=== PATIENT | male | born 1945 | race Caucasian/White ===

== ENCOUNTER 2022-03-21 07:33 | Inpatient (IN) | payer MEDICARE ==
[2022-03-21 08:26] LABS: #Eosinphils 0.2 10x3/uL (0.0-0.5); #Monocytes 0.6 10x3/uL (0.0-1.1); #Neutrophils 9.5 10x3/uL (1.5-8.4); %Basophils 0.2 % (0.0-2.0); %Eosinophils 1.5 % (0.0-6.0); %Lymphocytes 9.9 % (18.0-47.0); %Monocytes 5.2 % (0.0-10.0); %Neutrophils 82.4 % (40.0-75.0); Hemoglobin 7.2 g/dL (13.5-17.5); Mean Corpuscular Hemoglobin 28.8 pg (27.0-33.0); Mean Platelet Volume 8.9 fl (7.4-10.4); Platelet Count 446 10x3/uL (150-450); RBC Distribution Width 18.4 % (11.5-14.5); White Blood Cell (WBC) Count 11.5 10x3/uL (3.5-10.5)
[2022-03-21 08:42] LABS: ALT (SGPT) 17 U/L (8-55); AST (SGOT) 12 U/L (5-34); Albumin 2.5 g/dL (3.4-4.8); Alkaline Phosphatase 73 U/L (40-110); Anion Gap 14 mmol/L (10-20); BUN (Urea Nitrogen) 33 mg/dL (8.4-25.7); Bilirubin, Total 0.2 mg/dL (0.2-1.2); CK (CPK) 66 U/L (30-200); Calc. Creatinine Clearance 0 mL/min (70-130); Calcium 8.4 mg/dL (7.8-10.44); Carbon Dioxide 18 mmol/L (23-31); Chloride 111 mmol/L (98-107); Estimated GFR 30; Globulin 3.3 g/dL (2.4-3.5); Glucose 76 mg/dL (83-110); Lipase 27 U/L (8-78); Potassium 5.3 mmol/L (3.5-5.1); Protein, Total 5.8 g/dL (5.8-8.1); Sodium 138 mmol/L (136-145)
[2022-03-21] MEDS ORDERED: Dextrose 50% Abboject 50 ML SYRINGE ONE (08:55)
[2022-03-21] MEDS ORDERED: Octreotide Acetate 50 MCG/ML AMP ONE (08:56)
[2022-03-21 09:12] LABS: Bilirubin Neg (Negative); Blood, Urine 25 (Negative); Clarity Slightly Cloudy (Clear); Glucose, Urine (Dipstick) Normal (Negative); Ketone, Urine Negative (Negative); Leukocyte 500 (Negative); Nitrite Negative (Negative); Protein, Urine (Dipstick) 100 mg/dl (Neg-Trace); Specific Gravity, Urine 1.015 (1.002-1.036); Urobilinogen Normal mg/dL (Less than 2)
[2022-03-21 09:25] LABS: CKMB 10.3 ng/mL (0-6.6)
[2022-03-21 09:33] LABS: Squamous Epithelial 0-3 HPF (0-3); WBC/HPF 21-50 HPF (0-3)
[2022-03-21 09:34] LABS: Bacteria/HPF 3+ HPF (None Seen)
[2022-03-21] MEDS ORDERED: Aspirin Chewable 81 MG TAB ONE (10:11)
[2022-03-21] MEDS ORDERED: cefTRIAXone\\ROCEPHIN 2 GM VIAL ONE (10:11)
[2022-03-21] MEDS ORDERED: Acetaminophen 325 MG TAB PO PRN (10:15)
[2022-03-21] MEDS ORDERED: Ondansetron PF 4 MG/2 ML Vial IVP PRN (10:15)
[2022-03-21] MEDS ORDERED: Ondansetron ODT 4 MG TAB PO PRN (10:15)
[2022-03-21] MEDS ORDERED: Dextrose 5% in Water 1,000 ML IV PRN (11:15)
[2022-03-21] MEDS ORDERED: HumaLOG 300 UNITS/3 ML VIAL SC PRN ×2 (11:15)
[2022-03-21] MEDS ORDERED: Dextrose 50% Abboject 50 ML SYRINGE SLOW IVP PRN (11:15)
[2022-03-21 13:03] VITALS: BMI 30.4
[2022-03-21] MEDS ORDERED: Famotidine 20 MG TAB PO SCH (21:00)
[2022-03-21] MEDS ORDERED: Famotidine/PF 20 mg/2ml Vial SLOW IVP SCH (21:00)
[2022-03-22] MEDS: Dextrose 10% in Water 1,000 ML IV SCH (00:36)
[2022-03-22 03:08] LABS: SARS-CoV-2 NAA Rapid Test Not Detected (NotDetected)
[2022-03-22 06:33] LABS: Anion Gap 12 mmol/L (10-20); BUN (Urea Nitrogen) 34 mg/dL (8.4-25.7); Calc. Creatinine Clearance 37 mL/min (70-130); Calcium 7.8 mg/dL (7.8-10.44); Carbon Dioxide 18 mmol/L (23-31); Chloride 114 mmol/L (98-107); Estimated GFR 31; Glucose 90 mg/dL (83-110); Potassium 4.9 mmol/L (3.5-5.1); Sodium 139 mmol/L (136-145)
[2022-03-22 06:42] LABS: #Eosinphils 0.7 10x3/uL (0.0-0.5); #Monocytes 0.8 10x3/uL (0.0-1.1); #Neutrophils 5.8 10x3/uL (1.5-8.4); %Basophils 0.1 % (0.0-2.0); %Eosinophils 7.6 % (0.0-6.0); %Lymphocytes 14.8 % (18.0-47.0); %Monocytes 9.2 % (0.0-10.0); %Neutrophils 67.7 % (40.0-75.0); Hemoglobin 5.9 g/dL (13.5-17.5); Mean Corpuscular Hemoglobin 29.1 pg (27.0-33.0); Mean Corpuscular Volume 88.2 fl (81.2-95.1); Mean Platelet Volume 9.2 fl (7.4-10.4); Platelet Count 388 10x3/uL (150-450); RBC Distribution Width 18.6 % (11.5-14.5); Red Blood Cell (RBC) Count 2.03 10x6/uL (4.32-5.72); White Blood Cell (WBC) Count 8.5 10x3/uL (3.5-10.5)
[2022-03-22 08:14] LABS: PTT 24.1 sec (22.0-33.0); Prothrombin Time 10.9 sec (9.5-12.1)
[2022-03-22 08:17] LABS: Iron 28 ug/dL (65-175); Iron Binding Capacity, Total 96 mcg/dL (261-462)
[2022-03-22 08:38] LABS: Ferritin 305.23 ng/mL (22-322)
[2022-03-22] MEDS ORDERED: cefTRIAXone\\ROCEPHIN 1 GM in Sodium Chloride 0.9% 100 ML IVPB SCH (09:00)
[2022-03-22] MEDS ORDERED: Calcium Carbonate 500 MG ChewTAB PO PRN (10:40)
[2022-03-22] MEDS ORDERED: Bisacodyl 5 MG TAB PO PRN (10:40)
[2022-03-22] MEDS: Brimonidine Tartrate 0.2% Ophth Soln 5 ml Bottle R EYE SCH ×2 (15:56→22:33)
[2022-03-22] MEDS ORDERED: [UNRECOGNIZED DRUG - OTHER] IH SCH (21:00)
[2022-03-22] MEDS ORDERED: FORMOTEROL IH SCH (21:00)
[2022-03-22] MEDS ORDERED: BUDESONIDE IH SCH (21:00)
[2022-03-22] MEDS ORDERED: GLYCOPYR IH SCH (21:00)
[2022-03-22] MEDS: Metoprolol Tartrate 25 MG TAB PO SCH (22:32)
[2022-03-22] MEDS: Tamsulosin HCl 0.4 MG CAP PO SCH (22:32)
[2022-03-22] MEDS: Atorvastatin Calcium 40 MG TAB PO SCH (22:32)
[2022-03-22] MEDS: Senokot S 8.6-50 MG TAB PO SCH (22:33)
[2022-03-23] MEDS: Dextrose 10% in Water 1,000 ML IV SCH ×3 (04:14→22:44)
[2022-03-23 05:36] LABS: Anion Gap 10 mmol/L (10-20); BUN (Urea Nitrogen) 29 mg/dL (8.4-25.7); Calc. Creatinine Clearance 44 mL/min (70-130); Calcium 7.9 mg/dL (7.8-10.44); Carbon Dioxide 19 mmol/L (23-31); Chloride 112 mmol/L (98-107); Estimated GFR 38; Glucose 131 mg/dL (83-110); Potassium 4.8 mmol/L (3.5-5.1); Sodium 136 mmol/L (136-145)
[2022-03-23 05:40] LABS: #Eosinphils 0.7 10x3/uL (0.0-0.5); #Monocytes 0.7 10x3/uL (0.0-1.1); #Neutrophils 5.5 10x3/uL (1.5-8.4); %Basophils 0.2 % (0.0-2.0); %Eosinophils 8.6 % (0.0-6.0); %Lymphocytes 12.7 % (18.0-47.0); %Monocytes 9.1 % (0.0-10.0); %Neutrophils 68.3 % (40.0-75.0); Hemoglobin 7.4 g/dL (13.5-17.5); Mean Corpuscular HGB CONC 33.3 g/dL (32.0-36.0); Mean Corpuscular Hemoglobin 28.8 pg (27.0-33.0); Mean Corpuscular Volume 86.4 fl (81.2-95.1); Platelet Count 352 10x3/uL (150-450); RBC Distribution Width 18.1 % (11.5-14.5); Red Blood Cell (RBC) Count 2.57 10x6/uL (4.32-5.72); White Blood Cell (WBC) Count 8.1 10x3/uL (3.5-10.5)
[2022-03-23] MEDS: Cyanocobalamin (Vitamin B-12) 1,000 MCG TAB PO SCH (09:07)
[2022-03-23] MEDS: Metoprolol Tartrate 25 MG TAB PO SCH ×2 (09:07→20:34)
[2022-03-23] MEDS: Cholecalciferol 1,000 UNITS (25 MCG) TAB PO SCH (09:07)
[2022-03-23] MEDS: Allopurinol 100 MG TAB PO SCH (09:07)
[2022-03-23] MEDS: Senokot S 8.6-50 MG TAB PO SCH ×2 (09:08→20:35)
[2022-03-23] MEDS: Brimonidine Tartrate 0.2% Ophth Soln 5 ml Bottle R EYE SCH ×3 (09:47→20:34)
[2022-03-23] MEDS: HYDROcodone/Acetaminophen 10/325 mg Tablet PO PRN ×3 (11:44→22:38)
[2022-03-23] MEDS: Tamsulosin HCl 0.4 MG CAP PO SCH (20:34)
[2022-03-23] MEDS: Atorvastatin Calcium 40 MG TAB PO SCH (20:34)
[2022-03-24] MEDS: HYDROcodone/Acetaminophen 10/325 mg Tablet PO PRN ×2 (02:02→06:25)
[2022-03-24 04:40] LABS: #Eosinphils 0.7 10x3/uL (0.0-0.5); #Monocytes 0.7 10x3/uL (0.0-1.1); %Basophils 0.3 % (0.0-2.0); %Eosinophils 9.3 % (0.0-6.0); %Lymphocytes 16.8 % (18.0-47.0); %Neutrophils 63.4 % (40.0-75.0); Hemoglobin 7.3 g/dL (13.5-17.5); Mean Corpuscular HGB CONC 32.4 g/dL (32.0-36.0); Mean Corpuscular Hemoglobin 28.4 pg (27.0-33.0); Mean Corpuscular Volume 87.5 fl (81.2-95.1); Mean Platelet Volume 9.2 fl (7.4-10.4); Platelet Count 357 10x3/uL (150-450); Red Blood Cell (RBC) Count 2.57 10x6/uL (4.32-5.72); White Blood Cell (WBC) Count 7.8 10x3/uL (3.5-10.5)
[2022-03-24 04:55] LABS: Anion Gap 10 mmol/L (10-20); BUN (Urea Nitrogen) 26 mg/dL (8.4-25.7); Calc. Creatinine Clearance 49 mL/min (70-130); Calcium 8.2 mg/dL (7.8-10.44); Carbon Dioxide 20 mmol/L (23-31); Chloride 107 mmol/L (98-107); Estimated GFR 42; Glucose 162 mg/dL (83-110); Potassium 4.4 mmol/L (3.5-5.1); Sodium 133 mmol/L (136-145)
[2022-03-24 05:00] VITALS: TEMP 98.2
[2022-03-24] MEDS: Metoprolol Tartrate 25 MG TAB PO SCH (09:11)
[2022-03-24] MEDS: Allopurinol 100 MG TAB PO SCH (09:11)
[2022-03-24] MEDS: Cholecalciferol 1,000 UNITS (25 MCG) TAB PO SCH (09:11)
[2022-03-24] MEDS: Cyanocobalamin (Vitamin B-12) 1,000 MCG TAB PO SCH (09:11)
[2022-03-24] MEDS: Brimonidine Tartrate 0.2% Ophth Soln 5 ml Bottle R EYE SCH (09:12)
[2022-03-24] MEDS: Senokot S 8.6-50 MG TAB PO SCH (09:14)
[2022-03-24 10:48] VITALS: BP 117/66
== END 2022-03-24 10:48 | disposition home or self-care (01) | DRG 698 ==
LOC: CSHERS 07:33 → CSHTELE 11:46
PROVIDERS: ADMIT Hospitalist; ATTEND Hospitalist
PROC: 8E0ZXY6 Isolation (ICD-10-PCS; 2022-03-21)
PROC: 30233N1 Transfusion of Nonautologous Red Blood Cells into Peripheral Vein, Percutaneous Approach (ICD-10-PCS; principal; 2022-03-22)
DX: T83.511A Infection and inflammatory reaction due to indwelling urethral catheter, initial encounter (principal); G93.41 Metabolic encephalopathy; U07.1 COVID-19; J12.82 Pneumonia due to coronavirus disease 2019; I50.30 Unspecified diastolic (congestive) heart failure; N30.00 Acute cystitis without hematuria; C18.9 Malignant neoplasm of colon, unspecified; I13.0 Hypertensive heart and chronic kidney disease with heart failure and stage 1 through stage 4 chronic kidney disease, or unspecified chronic kidney disease; E11.649 Type 2 diabetes mellitus with hypoglycemia without coma; N18.9 Chronic kidney disease, unspecified; E11.22 Type 2 diabetes mellitus with diabetic chronic kidney disease; E78.5 Hyperlipidemia, unspecified; R53.81 Other malaise; Z96.1 Presence of intraocular lens; B96.5 Pseudomonas (aeruginosa) (mallei) (pseudomallei) as the cause of diseases classified elsewhere; D63.0 Anemia in neoplastic disease; Z96.643 Presence of artificial hip joint, bilateral; Z96.653 Presence of artificial knee joint, bilateral; Z88.8 Allergy status to other drugs, medicaments and biological substances; Z88.6 Allergy status to analgesic agent; Z79.899 Other long term (current) drug therapy; Z90.89 Acquired absence of other organs; Z79.52 Long term (current) use of systemic steroids; Z98.49 Cataract extraction status, unspecified eye; Z79.4 Long term (current) use of insulin; Z98.890 Other specified postprocedural states
CPT/HCPCS: 36415; 36416; 36430; 80048; 80053; 81003; 81015; 82274; 82550; 82553; 82607; 82728; 83540; 83550; 83690; 84484; 85025; 85610; 85730; 86850; 86900; 86901; 87077; 87086; 87186; 93005; 96365; 96372; 96375; J0696; J1956; J2354; J3490; J7999; P9016; U0002; U0003; U0005